=== PATIENT | female | born 1955 | race Caucasian/White ===

== ENCOUNTER 2023-10-04 10:59 | Day surgery (SDC) | payer MEDICARE, BC ==
[2023-10-04] MEDS ORDERED: Xylocaine-Mpf 2% 5 Ml Vial IJ ONE (11:00)
[2023-10-04] MEDS ORDERED: Depo-Medrol 40 MG/ML IM ONE (11:00)
[2023-10-04] MEDS ORDERED: DIPRIVAN 200 MG/20 ML IV ONE (12:50)
--- NOTE | 2023-10-04 14:43 | XRAY ---
Indication: Bilateral L4-S1 MBB. Intraoperative fluoroscopy provided for 22 seconds. Single digital spot image submitted for interpretation demonstrates posterior needle tips projecting over the expected left and right L4-S1 nerve roots. Correlate with intraoperative findings/report.
[2023-10-04] MEDS ORDERED: Lactated Ringers 1,000 ML IV ONE (15:05)
--- NOTE | 2023-10-04 16:44 | XRAY ---
22 seconds of fluoroscopy was used in surgery for a bilateral L4-S1 MBB.
== END 2023-10-04 13:16 | disposition home or self-care (01) ==
LOC: SDC-PAIN 10:59
PROVIDERS: ATTEND Psychiatry & Neurology Pain Medicine
DX: M47.816 Spondylosis without myelopathy or radiculopathy, lumbar region (principal)
CPT/HCPCS: 64493; 64494; 72020; 77002; J1010; J2704

== ENCOUNTER 2023-11-08 11:36 | Day surgery (SDC) | payer MEDICARE, BC ==
[2023-11-08] MEDS ORDERED: Depo-Medrol 40 MG/ML IM ONE (11:37)
[2023-11-08] MEDS ORDERED: BUPIVACAINE 0.5% VIAL IJ ONE (11:37)
[2023-11-08] MEDS ORDERED: DIPRIVAN 200 MG/20 ML IV ONE (12:39)
--- NOTE | 2023-11-08 13:14 | XRAY ---
Indication: Bilateral L4-S1 MBB. Intraoperative fluoroscopy provided for 14 seconds. Single lateral digital spot image submitted for interpretation demonstrates posterior needle tips projecting over the expected left and right L4-S1 nerve roots. Correlate with intraoperative findings/report.
--- NOTE | 2023-11-08 13:18 | XRAY ---
14 seconds of fluoroscopy was used in surgery for a bilateral L4-S1 MBB.
[2023-11-08] MEDS ORDERED: Lactated Ringers 1,000 ML IV ONE (14:06)
== END 2023-11-08 13:08 | disposition home or self-care (01) ==
LOC: SDC-PAIN 11:36
PROVIDERS: ATTEND Psychiatry & Neurology Pain Medicine
DX: M47.816 Spondylosis without myelopathy or radiculopathy, lumbar region (principal)
CPT/HCPCS: 64493; 64494; 72020; 77002; J2704

== ENCOUNTER 2023-12-06 12:21 | Day surgery (SDC) | payer MEDICARE, BC ==
[2023-12-06] MEDS ORDERED: Depo-Medrol 40 MG/ML IM ONE (12:22)
[2023-12-06] MEDS ORDERED: BUPIVACAINE 0.5% VIAL IJ ONE (12:22)
[2023-12-06] MEDS ORDERED: LIDOCAINE HCL 1% 50 MG/5 ML VL PF IJ ONE (12:22)
[2023-12-06] MEDS ORDERED: DIPRIVAN 200 MG/20 ML IV ONE (13:34)
--- NOTE | 2023-12-06 14:47 | XRAY ---
Indication: Right L4-S1 RFA. Intraoperative fluoroscopy was provided for 23 seconds. 3 digital spot image submitted for interpretation demonstrates posterior needle tips projecting over the expected right L4-S1 nerve roots. Correlate with intraoperative findings/report.
[2023-12-06] MEDS ORDERED: Lactated Ringers 1,000 ML IV ONE (15:02)
--- NOTE | 2023-12-06 15:13 | XRAY ---
23 seconds of fluoroscopy was used in surgery for a right L4-S1 RFA.
== END 2023-12-06 14:07 | disposition home or self-care (01) ==
LOC: SDC-PAIN 12:21
PROVIDERS: ATTEND Psychiatry & Neurology Pain Medicine
DX: M47.816 Spondylosis without myelopathy or radiculopathy, lumbar region (principal)
CPT/HCPCS: 64635; 64636; 72100; 77002; J2001; J2704

== ENCOUNTER 2023-12-13 13:19 | Day surgery (SDC) | payer MEDICARE, BC ==
[2023-12-13] MEDS ORDERED: BUPIVACAINE 0.5% VIAL IJ ONE (13:20)
[2023-12-13] MEDS ORDERED: LIDOCAINE HCL 1% 50 MG/5 ML VL PF IJ ONE (13:20)
[2023-12-13] MEDS ORDERED: Depo-Medrol 40 MG/ML IM ONE (13:20)
[2023-12-13] MEDS ORDERED: DIPRIVAN 200 MG/20 ML IV ONE (15:40)
[2023-12-13] MEDS ORDERED: Lactated Ringers 1,000 ML IV ONE (15:45)
--- NOTE | 2023-12-13 16:47 | XRAY ---
Indication: Left L4-S1 RFA. Intraoperative fluoroscopy provided for 22 seconds. 4 digital spot images submitted for interpretation demonstrates posterior needle tips projecting over the expected left L4-S1 nerve roots. Correlate with intraoperative findings/report.
--- NOTE | 2023-12-13 20:10 | XRAY ---
22 seconds of fluoroscopy was used in surgery for a left L4-S1 RFA.
== END 2023-12-13 16:14 | disposition home or self-care (01) ==
LOC: SDC-PAIN 13:19
PROVIDERS: ATTEND Psychiatry & Neurology Pain Medicine
DX: M47.816 Spondylosis without myelopathy or radiculopathy, lumbar region (principal)
CPT/HCPCS: 64635; 64636; 72100; 77002; J2001; J2704